=== PATIENT | female | born 1995 | race Hispanic/Latino ===

== ENCOUNTER 2017-01-25 02:07 | Emergency (ER) | payer SELFPAY ==
[2017-01-25] MEDS ORDERED: Ondansetron HCl/PF 4 MG/2 ML Vial ONE (02:31)
[2017-01-25] MEDS ORDERED: Ketorolac Tromethamine 30 MG/ML VIAL ONE (02:31)
[2017-01-25 02:53] LABS: #Basophils 0.1 thou/uL (0.0-0.2); #Eosinphils 0.1 thou/uL (0.0-0.7); #Lymphocytes 2.5 thou/uL (1.20-3.40); #Monocytes 0.7 thou/uL (0.11-0.59); #Neutrophils 9.8 thou/uL (1.40-6.50); %Basophils 0.7 % (0.0-1.0); %Eosinophils 0.5 % (0.0-10.0); %Lymphocytes 19.2 % (28.0-48.0); %Monocytes 5.6 % (0.0-4.0); Hematocrit 49.3 % (36.0-47.0); Mean Platelet Volume 7.6 fL (7.4-10.4); White Blood Cell (WBC) Count 13.2 thou/uL (4.8-10.8)
[2017-01-25 03:13] LABS: ALT (SGPT) 23 U/L (8-55); AST (SGOT) 20 U/L (5-34); Alkaline Phosphatase 82 U/L (40-150); Anion Gap 16 mmol/L (10-20); BUN (Urea Nitrogen) 15 mg/dL (7.0-18.7); Bilirubin, Total 0.4 mg/dL (0.2-1.2); CK (CPK) 87 U/L (29-168); Calc. Creatinine Clearance 0 mL/min (70-130); Calcium 10.3 mg/dL (7.8-10.44); Carbon Dioxide 23 mmol/L (22-29); Chloride 103 mmol/L (98-107); Estimated GFR-MDRD 85; Globulin 3.5 g/dL (2.4-3.5); Lipase 18 U/L (8-78); Protein, Total 8.3 g/dL (6.0-8.3)
[2017-01-25 04:01] LABS: Bilirubin Negative (Negative); Blood, Urine Negative (Negative); Glucose, Urine (Dipstick) Negative (Negative); Ketone, Urine Trace mg/dL (Negative); Nitrite Negative (Negative); Protein, Urine (Dipstick) Negative (Neg-Trace); Urobilinogen 0.2 mg/dL (0.2-1.0)
--- NOTE | 2017-01-25 07:56 | CT ---
PRELIMINARY REPORT/[facility]/EMERGENCY AFTER HOURS PROCEDURE: Addendum created by Shawn Ann MD on 01/25/2017 4:25 AM Central Time ([place]) Findings were discussed with Chiqui Atkins at 01/25/2017 4:25 AM CDT. Initial Report created on 01/25/2017 4:07 AM Central Time ([place]) EXAM: CT Abdomen and Pelvis With Intravenous Contrast EXAM DATE/TIME: Exam ordered 01/25/2017 3:18 AM CLINICAL HISTORY: 22 years old, female; Pain; Abdominal pain; Localized; Other: Generalized pain; Patient HX: F20 pres ents to ed C/O abd pain, onset late yesterday. Pain initially located mid abd near navel. Associated with vomiting (onset 2300), hematemesis (x 1), nausea. Pt ate wings for dinner. No similar pmh. Den ies diarrhea, cholecystectomy. No HX kidney stones. Just finished lmp. TECHNIQUE: Axial computed tomography images of the abdomen and pelvis with intravenous contrast. Coronal reformatted images were created and reviewed. COMPARISON: No relevant prior studies available. FINDINGS: Lower thorax: There are nonspecific linear lucencies within the lung bases which may simply represen t respiratory motion artifact however trace pneumothorax is not completely excluded. ABDOMEN: Liver: There are no focal liver lesions present. Gallbladder and bile ducts: The gallbladder is normal. There is no evidence of biliary ductal dilati on. No calcified stones. Pancreas: The pancreas is normal. No ductal dilation. Spleen: The spleen is normal. Adrenals: The adrenal glands are normal. Kidneys and ureters: There is striated nephrogram of the bilateral kidneys which may be normal howev er acute pyelonephritis can also have this appearance. No hydronephrosis. Stomach and bowel: There is moderate colonic constipation. The duodenum is unremarkable. The stomach is normal. No obstruction. No mucosal thickening. Appendix: A normal appendix is probably identified. PELVIS: Bladder: Normal. No mass. Reproductive: The uterus is normal. There is a 2 cm LEFT ovarian cyst. ABDOMEN and PELVIS: Intraperitoneal space: Normal. No free air. No significant fluid collection. Bones/joints: No acute fracture. No dislocation. Soft tissues: Normal. Vasculature: Normal. No abdominal aortic aneurysm. Lymph nodes: Normal. No enlarged lymph nodes. IMPRESSION: 1. There is striated nephrogram of the bilateral kidneys which may be normal however acute pyeloneph ritis can also have this appearance. Clinical correlation is advised. 2. There is moderate colonic constipation. 3. There are nonspecific linear lucencies within the lung bases which may simply represent respirato ry motion artifact however trace pneumothorax is not completely excluded. Clinical correlation is ad vised. Thank you for allowing us to participate in the care of your patient. Dictated and Authenticated by: Shawn Ann MD 01/25/2017 4:07 AM Central Time ([place] \[place]\ [place]) FINAL REPORT CT ABDOMEN AND PELVIS WITH IV CONTRAST: I agree with the preliminary report given by Dr. Shawn Ann of [facility]. POS: [facility]
[2017-01-25] MEDS ORDERED: ISOVUE-370 76%-LOCM 1 ML ONE (16:08)
== END 2017-01-25 05:00 | disposition home or self-care (01) ==
LOC: ERS 02:07
DX: R10.9 Unspecified abdominal pain (principal); R10.817 Generalized abdominal tenderness
CPT/HCPCS: 74177; 80053; 81003; 82550; 83690; 84703; 85025; 96361; 96374; 96375; J1885; J2270; J2405

== ENCOUNTER 2019-05-19 23:13 | Emergency (ER) | payer SELFPAY ==
[2019-05-19] MEDS ORDERED: diphenhydrAMINE 50 MG/ML VIAL ONE (23:37)
[2019-05-19] MEDS ORDERED: Metoclopramide HCl 10 MG/2 ML VIAL ONE (23:37)
== END 2019-05-20 00:33 | disposition home or self-care (01) ==
LOC: ERS 23:13
DX: R51 Headache (principal)
CPT/HCPCS: 96365; 96375; J1200; J2765